=== PATIENT | male | born 1975 ===

== ENCOUNTER 2021-02-27 09:50 | Emergency (ER) | payer SELFPAY ==
[2021-02-27 10:06] VITALS: BP 124/68
--- NOTE | 2021-02-27 11:32 | Emergency Department Report ---
- General Chief complaint: Skin/Abscess/Foreign Body Stated complaint: RT FACE PAIN/SWELLING Time Seen by Provider: 02/27/21 11:25 Source: patient Mode of arrival: Ambulatory Limitations: No Limitations - History of Present Illness Initial comments: 46-year-old male comes in to the emergency room for swelling and lesion to his right side of his nose for 4 days. Patient states that he started some antibiotic he is unaware for the last 2 days. Currently on no medications no allergies. No hospitalization no past medical history takes no medications on a daily basis. No fever but has warmness to the right side of his face where the lesion is. MD complaint: abscess/boil Onset/Timin -: days(s) Tetanus Up to Date: yes Location: face Quality: stabbing, aching Consistency: constant Improves with: none Context: none - Related Data Previous Rx's Medication Instructions Recorded Last Taken Type Mupirocin [Bactroban 2%] 1 applic TP TID 10 Days #1 tube 02/27/21 Unknown Rx Sulfamethoxazole/Trimethoprim 1 each PO BID 7 Days #14 tablet 02/27/21 Unknown Rx [Bactrim DS TAB] Allergies Allergy/AdvReac Type Severity Reaction Status Date / Time No Known Allergies Allergy Unverified 02/27/21 10:02 Abscess Boil HPI - HPI Chief Complaint: Skin/Abscess/Foreign Body Stated Complaint: RT FACE PAIN/SWELLING Time Seen by Provider: 02/27/21 11:25 Home Medications: Previous Rx's Medication Instructions Recorded Last Taken Type Mupirocin [Bactroban 2%] 1 applic TP TID 10 Days #1 tube 02/27/21 Unknown Rx Sulfamethoxazole/Trimethoprim 1 each PO BID 7 Days #14 tablet 02/27/21 Unknown Rx [Bactrim DS TAB] Allergies/Adverse Reactions: Allergies Allergy/AdvReac Type Severity Reaction Status Date / Time No Known Allergies Allergy Unverified 02/27/21 10:02 ED Review of Systems ROS: Stated complaint: RT FACE PAIN/SWELLING Other details as noted in HPI Comment: All other systems reviewed and negative ED Past Medical Hx - Past Medical History Previous Medical History?: No - Surgical History Past Surgical History?: Yes Additional Surgical History: right hand/arm surgery - Medications Home Medications: Home Medications Medication Instructions Recorded Confirmed Last Taken Type Mupirocin [Bactroban 2%] 1 applic TP TID 10 Days #1 tube 02/27/21 Unknown Rx Sulfamethoxazole/Trimethoprim 1 each PO BID 7 Days #14 tablet 02/27/21 Unknown Rx [Bactrim DS TAB] ED Physical Exam - General Limitations: No Limitations General appearance: alert - Head Head exam: Present: atraumatic, normocephalic - Eye Eye exam: Present: normal appearance - ENT ENT exam: Present: normal exam - Neck Neck exam: Present: normal inspection, full ROM - Respiratory Respiratory exam: Absent: accessory muscle use - Neurological Exam Neurological exam: Present: alert, oriented X3 - Psychiatric Psychiatric exam: Present: normal affect, normal mood - Skin Skin exam: Present: erythema - Expanded Skin Exam Expanded Type of lesion: Present: abscess Distribution of rash: face Description of rash: Present: tenderness, erythematous, swelling ED Course Vital Signs 02/27/21 10:05 Temperature 98.4 F Pulse Rate 67 Respiratory 18 Rate Blood Pressure 124/68 [Right] O2 Sat by Pulse 98 Oximetry ED Medical Decision Making - Medical Decision Making 46-year-old male comes in to the emergency room for swelling and lesion to his right side of his nose for 4 days. Patient states that he started some antibiotic he is unaware for the last 2 days. Currently on no medications no allergies. No hospitalization no past medical history takes no medications on a daily basis. No fever but has warmness to the right side of his face where the lesion is. Patient was evaluated and translated with colleague Zakia PUENTE Critical care attestation.: If time is entered above; I have spent that time in minutes in the direct care of this critically ill patient, excluding procedure time. ED Disposition Clinical Impression: Abscess of face Disposition: 01 HOME / SELF CARE / HOMELESS Is pt being admited?: No Does the pt Need Aspirin: No Condition: Stable Instructions: Skin Abscess, [id number] Additional Instructions: Complete antibiotics as prescribed. Ibuprofen or Tylenol for pain management. Follow-up with a primary care provider next 3 to 5 days if no improvement. Antibiticos completos segn lo prescrito. Ibuprofeno o Tylenol para el manejo del dolor. Seguimiento con un proveedor de atencin primaria los prximos 3 a 5 castillo si no hay mejora. Prescriptions: Sulfamethoxazole/Trimethoprim [Bactrim DS TAB] 1 each PO BID 7 Days #14 tablet Mupirocin [Bactroban 2%] 1 applic TP TID 10 Days #1 tube Referrals: PRIMARY CARE, [Primary Care Provider] - 3-5 Days [facility] [place][Note 3] [Outside] - 3-5 Days [facility] [Provider Group] - 3-5 Days Forms: Work/School Release Form(ED)
== END 2021-02-27 11:32 | disposition home or self-care (01) ==
LOC: ED 09:50
DX: L02.01 Cutaneous abscess of face (principal); Z79.899 Other long term (current) drug therapy; Z98.890 Other specified postprocedural states
CPT/HCPCS: 99281